=== PATIENT | male | born 1990 | race Caucasian/White ===

== ENCOUNTER 2019-03-29 09:25 | Emergency (ER) | payer MEDICAID ==
[2019-03-29 09:32] VITALS: BP_SYST 133
[2019-03-29] MEDS ORDERED: NACL 0.9% 1,000 ML IV ONE (09:49)
[2019-03-29] MEDS ORDERED: MORPHINE 4 MG/ML INJ. SYRINGE IVP ONE (10:00)
[2019-03-29] MEDS ORDERED: cefTRIAXone 1 GM IVPB PREMIX 50 ML IV ONE (10:00)
[2019-03-29] MEDS ORDERED: ONDANSETRON HCL 4 MG/2 ML VIAL IVP ONE (10:00)
[2019-03-29] MEDS ORDERED: IOHEXOL 100 ML IV ONE (10:19)
[2019-03-29 10:25] LABS: BASOPHILS # (AUTO) 0.1 K/uL (0.0-0.2); BASOPHILS % (AUTO) 0.3 % (0.0-2.0); HEMATOCRIT 39.9 % (36-54); HEMOGLOBIN 13.5 g/dL (14.0-18.0); LYMPHOCYTES # (AUTO) 1.2 K/uL (1.0-5.5); LYMPHOCYTES % (AUTO) 5.5 % (20.5-51.5); MEAN CORPUSCULAR HEMOGLOBIN 31 pg (27-31); MEAN CORPUSCULAR HGB CONC 34 % (32-36); MEAN CORPUSCULAR VOLUME 91 fL (79.0-98.0); MONOCYTES # (AUTO) 1.1 K/uL (0.0-1.0); MONOCYTES % (AUTO) 4.9 % (1.7-9.3); NEUTROPHILS % (AUTO) 89.3 % (40.0-70.0); PLATELET COUNT (AUTO) 298 K/uL (130-430); RED CELL DISTRIBUTION WIDTH 13.4 % (9.0-15.0); WHITE BLOOD COUNT (AUTO) 22.4 K/uL (4.8-10.8)
[2019-03-29 10:46] LABS: INR 1.1 (0.80-1.20); PROTHROMBIN TIME 11.4 SECS (9.5-12.5)
[2019-03-29 11:07] LABS: CALCIUM 9.3 mg/dL (8.4-11.0); CREATININE 1.03 mg/dL (0.55-1.30); POTASSIUM 3.4 mmol/L (3.5-5.1)
[2019-03-29 11:12] LABS: ERYTHROCYTE SEDIMENTATION RATE 30 MM/HR (0-15)
[2019-03-29 11:13] LABS: ALBUMIN 3.4 g/dL (3.4-4.8); TOTAL BILIRUBIN 0.2 mg/dL (0.0-1.0)
[2019-03-29 12:03] LABS: BILIRUBIN,URINE NEGATIVE (NEGATIVE); BLOOD, URINE NEGATIVE (NEGATIVE); CLARITY/URINE CLEAR (CLEAR); COLOR,URINE YELLOW (YELLOW); GLUCOSE,URINE NEGATIVE (NEGATIVE); KETONES,URINE NEGATIVE (NEGATIVE); LEUKOCYTE ESTERASE ,URINE NEGATIVE (NEGATIVE); NITRITE, URINE NEGATIVE (NEGATIVE); PROTEIN URINE TRACE (NEGATIVE); UROBILINOGEN,URINE 0.2 (0.2-1.0)
[2019-03-29 12:12] LABS: BACTERIA,URINE FEW /HPF (None Seen); RBC,URINE 0-3 /HPF (0-3); WBC,URINE 0-3 /HPF (0-3)
[2019-03-29 14:15] VITALS: BP_SYST 130
== END 2019-03-29 14:15 | disposition home or self-care (01) ==
LOC: SED 09:25
DX: M54.2 Cervicalgia (principal); R22.0 Localized swelling, mass and lump, head
CPT/HCPCS: 36415; 70491; 71045; 80053; 81000; 83605; 83690; 85025; 85610; 85651; 85730; 87040; 96365; 99284; J0696; J7030; Q9967; J2270; J2405

== ENCOUNTER 2019-03-29 23:42 | Inpatient (IN) | payer MEDICAID ==
[~2019-03-29] VITALS: Ht 175.3 cm; Wt 64.9 kg
--- NOTE | 2019-03-29 23:50 | NUR ---
Called pt in the WR,no response.
[2019-03-30] VITALS (7 sets, daily range): BP systolic 105–130
--- NOTE | 2019-03-30 | NUR ---
Patient to ER bed 8 to gown for evaluation. Side rails up. Report given to Ryan MAGALLON.
--- NOTE | 2019-03-30 | NUR ---
BIB FRIEND C/O LEFT FACIAL AND NECK SWELLING/PAIN ONSET 4 DAYS AGO,PT STS HE WAS ADMITTED IN [facility] 2 DAYS AGO FOR THE SAME REASON,PT WAS HERE THIS MORNING AND SEEN BY DR HARRINGTON ORDERED LABS ,LACTIC,BC ,CT WAS DONE TODAY.
--- NOTE | 2019-03-30 00:06 | NUR ---
ER Dr. Malloy at bedside examining patient.
[2019-03-30] MEDS ORDERED: PIPERACILLIN/TAZO 3.375 GM in NS 50 ML IV ONE (00:15)
[2019-03-30] MEDS ORDERED: NACL 0.9% 1,000 ML IV ONE (00:15)
[2019-03-30] MEDS ORDERED: methylPREDNISolone SOD SUCC/PF 62.5 MG/ML VIAL IVP ONE (00:15)
[2019-03-30] MEDS ORDERED: KETOROLAC TROMETHAMINE 30 MG VIAL IVP ONE (00:15)
[2019-03-30] MEDS ORDERED: PIPERACILLIN/TAZOBACTAM 3.375 GM/VIAL (ZOSYN) IV ONE (00:36)
--- NOTE | 2019-03-30 00:44 | NUR ---
Patient will be admitted to care of DR ARANGO. Admitted to MED -SURG unit. Will go to room 135. Belongings list completed. Summary report printed. Report will be given TO LU MAGALLON.
--- NOTE | 2019-03-30 01:02 | NUR ---
ADMISSION NOTE Received patient from ER via gurney. Patient admitted with diagnosis of Pharyngeal abscess , to room 135 , will move pt to room 119 B after the admission process .
--- NOTE | 2019-03-30 01:30 | NUR ---
PATIENT CAME FROM ER PER JUNITO WITH CC OF SWELLING SUBMANDIBULAR AND NECK PAIN X 2 DAYS, FIXED IN BED AND MADE COMFORTABLE.
--- NOTE | 2019-03-30 01:32 | NUR ---
CONSULT: CONSULT CALLED FOR DR. HICKEY I SPOKE WITH MICHELL BOTELLO REASON FOR CONSULT: PHARYNGEAL ABSCESS REQUESTING CONSULT: DR SHERI Moe ROAD PASSENGER FIRER PHONE NUMBER: [phone]
--- NOTE | 2019-03-30 01:41 | NUR ---
PATIENT DID NOT EAT DINNER AND NO DIET ORDERS , DR WADE PAGED FOR ORDERS AND AWAITING RESPONSE FOR ORDERS
--- NOTE | 2019-03-30 04:06 | NUR ---
patient is asleep. with family at bedside. Dr Aguila not called back. will follow up call in am for orders.
--- NOTE | 2019-03-30 06:00 | NUR ---
CALLED DR. MÁRQUEZ @[phone] FOR CONSULT BUT EVERY TIME I CALLED MACHINE SAID THANK YOU I HAVE NOT BE ABLE TO REACH THE RECORD PRESSMAN. NO ANSWERING SERVICE UNTIL NOW. I CALLED SEVERAL TIMES Addendum: 03/30/19 at 7396 by Clarisa Sandoval [place]/ NUMBER I CALLED SEVERAL TIMES [phone]
[2019-03-30] MEDS ORDERED: ONDANSETRON HCL 4 MG/2 ML VIAL IVP PRN (06:15)
[2019-03-30] MEDS ORDERED: LORazepam 2 MG/ML VIAL IVP PRN (06:15)
--- NOTE | 2019-03-30 06:23 | NUR ---
CONSULT: CONSULT CALLED FOR DR. ROMERO I SPOKE WITH TOSHIA BOTELLO REASON FOR CONSULT: MANDIBULAR ABSCESS REQUESTING CONSULT: DR. SHERI Moe FINANCIAL ADMINISTRATIVE ASSISTANT PHONE NUMBER: [phone]
--- NOTE | 2019-03-30 06:26 | NUR ---
TRANSFER OF CARE/END NOTE RECEIVED REPORT FROM SHERITA DALEY. SHERITA AGGARWAL LEFT EARLY. PATIENT IS ASLEEP BUT AROUSABLE. NO COMPLAINTS AT THIS TIME. PATIENT IS AMBULATORY WITH STEADY GAIT. CARE AND MONITORING PROVIDED SINCE TRANSFER OF CARE. CALL LIGHT WITHIN REACH. BED ALARM OFF PER PATIENT'S REQUEST. NEW ORDERS JUST UP. WILL START IVF. KEPT WARM AND COMFORTABLE.
[2019-03-30] MEDS: D5/0.45 NS 1,000 ML IV SCH ×3 (06:41→23:00)
--- NOTE | 2019-03-30 07:13 | NUR ---
Nutrition Update Triston Scale 15 noted. Pt admitted for Pharyngeal Abscess Diet: NPO BMI: 21 kg/m2 RD to follow per nutrition care standards.
[2019-03-30] MEDS: PIPERACILLIN/TAZO 3.375/DEX-IS 50 ML IV SCH ×4 (07:34→23:01)
--- NOTE | 2019-03-30 07:35 | NUR ---
OPENING NOTES: RECEIVED PATIENT FROM CHIEF BANK EXAMINER NURSE. PATIENT IS AWAKE AND ALERT x4. PATIENT DENIES ANY PAIN AT THE MOMENT. NO SIGNS OF DISTRESS OR SHORTNESS OF BREATH NOTED. PATIENT IS TOLERATING OXYGEN AT ROOM AIR. IV SITE IS PATENT WITH NO SIGNS OF INFILTRATION. PATIENT IN STABLE CONDITION. SAFETY AND FALL PRECAUTIONS ARE IN PLACE. BED LOCKED IN LOWEST POSITION WITH CALL LIGHT IN REACH. WILL CONTINUE TO MONITOR PATIENT FOR ANY CHANGES.
--- NOTE | 2019-03-30 08:53 | NUR ---
PAGED PAGED ERIKA BELL AT [phone] SPOKE WITH ADELITA.
--- NOTE | 2019-03-30 08:58 | NUR ---
CALL DR SHERI KASPER, AWAITING CALL BACK TO ASK ABOUT DIET, PT IS NPO BUT WANTS TO EAT AND TO CLARIFY ORDER FOR NOSE THROAT CULTURE. Addendum: 03/30/19 at 0947 by Keely Johnson RN DR WADE REPAGED TO MAKE HIM AWARE THAT DR ROMERO DOES NOT TAKE MEDICAL INSURANCE AND WILL NOT BE TAKING THE CONSULT, AWAITING CALL BACK. Addendum: 03/30/19 at 0952 by Keely Johnson RN CALLED BACK AND GAVE NEW ORDERS FOR DR ASHA BALBUENA TO SEE PT AND CANCELLED NOSE AND THROAT CULTURE
--- NOTE | 2019-03-30 09:27 | NUR ---
PAGED PAGED ERIKA BELL AT [phone] SPOKE WITH CRYSTAL.
--- NOTE | 2019-03-30 09:35 | NUR ---
Received call from Dr. Levine. He is declining consult for mandibular abscess. States he does not take Medical. Nurse informed.
--- NOTE | 2019-03-30 09:40 | NUR ---
CONSULTATION PAGED REASON FOR CONSULTATION:ABSCESS WAS CONSULT CALLED?Y PERSON WHO WAS NOTIFIED:SHARAD CONSULTING PHYSICIAN:RADHA QUINTANILLA SLOT MACHINE FLOOR PERSON SPECIALTY:SURGEON SLOT MACHINE FLOOR PERSON PHONE NUMBER:[phone] REQUESTING PHYSICIAN:ERIKA BELL
--- NOTE | 2019-03-30 10:13 | NUR ---
CONSULTATION PAGED REASON FOR CONSULTATION:PHARYNGEAL ABSCESS WAS CONSULT CALLED?Y PERSON WHO WAS NOTIFIED:OLENA CONSULTING PHYSICIAN:ERIKA PANIAGUA (EDUARD CAIN COLLECTOR OF AQUARIUM SPECIMENS) DOES NOT TAKE STRAIGHT [facility] DIGITAL FORENSIC ANALYST SPECIALTY:APPLICATION SECURITY SPECIALIST PHONE NUMBER:[phone] REQUESTING PHYSICIAN:ERIKA BELL
--- NOTE | 2019-03-30 10:20 | NUR ---
RN ROUNDS: PATIENT IS AWAKE AND ALERT x4. FAMILY AT BEDSIDE. PATIENT DENIES ANY PAIN AT THE MOMENT. PATIENT IN STABLE CONDITION. WILL CONTINUE TO MONITOR PATIENT FOR ANY CHANGES.
--- NOTE | 2019-03-30 10:37 | NUR ---
MD CALL DR SHERI KASPER. AWAITING CALL BACK TO NOTIFY HIM THAT DR ASHA BALBUENA DOES NOT TAKE MEDICAL, PER MD OK TO HAVE DR RAMOS SEE PT AND ORDER MECHANICAL SOFT DIET.
--- NOTE | 2019-03-30 11:20 | NUR ---
MD ROUNDS DR RACHEL HERNANDEZ, AWARE OF PATIENT'S CONDITION, PER MD HE WANTS TO SEE THE PT AFTER DR WADE SEES PT AND ORDERS LABS FOR HIM, WILL MAKE DR WADE AWARE WHEN HE ROUNDS.
--- NOTE | 2019-03-30 12:20 | NUR ---
RN ROUNDS: PATIENT IS AWAKE AND ALERT x4 SITTING UP IN BED. FAMILY AT BEDSIDE. PATIENT DENIES ANY PAIN AT THE MOMENT. NO SIGNS OF DISTRESS OR SHORTNESS OF BREATH NOTED. PATIENT IN STABLE CONDITION. SAFETY, FALL AND ASPIRATION PRECAUTIONS ARE IN PLACE. BED LOCKED IN LOWEST POSITION WITH CALL LIGHT IN REACH. WILL CONTINUE TO MONITOR PATIENT FOR ANY CHANGES.
--- NOTE | 2019-03-30 13:10 | NUR ---
MD ROUNDS DR WADE ROUNDING, AWARE OF PATIENT'S CONDITION, MADE AWARE THAT DR RAMOS STATED THAT HE WILL SEE PT AFTER H&P IS DONE, MD ORDERED NEW LABS.
[2019-03-30 13:43] LABS: BASOPHILS # (AUTO) 0.1 K/uL (0.0-0.2); BASOPHILS % (AUTO) 0.3 % (0.0-2.0); HEMATOCRIT 39.4 % (36-54); HEMOGLOBIN 13.1 g/dL (14.0-18.0); LYMPHOCYTES % (AUTO) 5.4 % (20.5-51.5); MEAN CORPUSCULAR HEMOGLOBIN 30 pg (27-31); MEAN CORPUSCULAR HGB CONC 33 % (32-36); MEAN CORPUSCULAR VOLUME 91 fL (79.0-98.0); MONOCYTES # (AUTO) 0.8 K/uL (0.0-1.0); MONOCYTES % (AUTO) 4.2 % (1.7-9.3); NEUTROPHILS # (AUTO) 17.1 K/uL (1.8-7.7); NEUTROPHILS % (AUTO) 90.1 % (40.0-70.0); PLATELET COUNT (AUTO) 319 K/uL (130-430); RED BLOOD CELL COUNT(AUTO) 4.32 MIL/uL (4.2-6.2); RED CELL DISTRIBUTION WIDTH 13.3 % (9.0-15.0)
--- NOTE | 2019-03-30 13:46 | NUR ---
MD ROUNDS DR MÁRQUEZ ROUNDING, AWARE OF PATIENT'S CONDITION, PER ABSCESS IS INTERNALLY AND ENT NEEDS TO SEE PT, PER MD THERE IS NOTHING HE CAN DO FOR HIM, SIGNING OFF CASE.
[2019-03-30 14:05] LABS: POTASSIUM 3.7 mmol/L (3.5-5.1)
[2019-03-30 14:06] LABS: CREATININE 0.89 mg/dL (0.55-1.30)
[2019-03-30 14:07] LABS: C-REACTIVE PROTEIN QUANT 8.2 mg/dL (0-0.5)
[2019-03-30 14:10] LABS: ALBUMIN 3.1 g/dL (3.4-4.8); TOTAL BILIRUBIN 0.5 mg/dL (0.0-1.0)
--- NOTE | 2019-03-30 14:20 | NUR ---
ROUNDS PT IN BED, NO S/S OF DISTRESS OR SOB NOTED, PT HAS NO C/O PAIN AT THIS TIME, PT IN STABLE CONDITION,PT TALKING TO VISITOR AT BEDSIDE. WILL CONTINUE TO MONITOR PT FOR ANY CHANGES.
[2019-03-30 14:23] LABS: ERYTHROCYTE SEDIMENTATION RATE 31 MM/HR (0-15)
[2019-03-30] MEDS: MORPHINE 2 MG/ML INJ. SYRINGE IVP PRN (17:58)
--- NOTE | 2019-03-30 18:50 | NUR ---
CLOSING NOTE PT IN BED, NO S/S OF DISTRESS OR SOB NOTED, PT HAS NO C/O PAIN AT THIS TIME, PT IN STABLE CONDITION, IV CATHETER PATENT, RUNNING IV FLUIDS ORDERED, PT WATCHING TV. BED AT LOWEST POSITION, CALL LIGHT WITHIN REACH, WILL ENDORSE CARE OF PT TO INCOMING NURSE, FALL AND SAFETY PRECAUTIONS IN PLACE.
--- NOTE | 2019-03-30 19:20 | NUR ---
OPENING NOTES Pt and endorsement received from day shift nurse. Pt is AAOx4, lying in bed. Pt on IVF with D5,0.45NS at 125ml/hr and infusing well on right upper arm G18. No complains of pain or discomfort at this time. No signs of acute distress or SOB noted. Encouraged to use call light when needed. Safety precautions in place with 2 side rails up, wheels locked, and bed in lowest level. Call light with pt. Will continue to monitor.
--- NOTE | 2019-03-30 20:05 | NUR ---
ROUNDS Accompanied pt to the front lobby and back to room with steady gait. Pt saw her daughter. Pt tolerated well. No complains of pain and no signs of acute distress noted. Will continue to monitor.
--- NOTE | 2019-03-30 21:30 | NUR ---
NOSE THROAT CULTURES Nose and throat culture collected and sent to lab per MD's order.
--- NOTE | 2019-03-30 23:00 | NUR ---
IV INSERTION Pt complained of discomfort on IV site. New IV inserted by SHERITA Mckeon on left forearm G20, with good blood return and flushable with saline. Reconnected IVF and is infusing well. No signs of acute distress noted. Safety precautions in place and call light with pt. Will continue to monitor.
[2019-03-31] VITALS (7 sets, daily range): BP systolic 111–137
--- NOTE | 2019-03-31 01:45 | NUR ---
ROUNDS Pt is resting in bed with both eyes closed, with visible chest rise and fall with non-labored breathing noted. IVF infusing well. No complains of pain and no signs of acute distress noted. Safety precautions in place and call light with pt. Will continue to monitor.
[2019-03-31] MEDS: MORPHINE 4 MG/ML INJ. SYRINGE IVP PRN ×4 (04:08→20:09)
--- NOTE | 2019-03-31 04:08 | NUR ---
MORPHINE GIVEN Pt complained of pain on his left side of his face and throat with a scale of 7/10. Vital signs taken and recorded. Morphine 4mg IVP given as ordered. Educated on safety and side effects like dizziness, pt verbalized understanding. No signs of acute distress noted. Safety precautions in place and call light with pt. Will continue to monitor.
[2019-03-31] MEDS: PIPERACILLIN/TAZO 3.375/DEX-IS 50 ML IV SCH ×4 (05:06→23:28)
[2019-03-31] MEDS: D5/0.45 NS 1,000 ML IV SCH ×3 (06:04→17:07)
--- NOTE | 2019-03-31 06:44 | NUR ---
CLOSING NOTES Pt is resting in bed with both eyes closed, with visible chest rise and fall with non-labored breathing noted. Visitor at beside the whole night. IVF infusing well. No complains of pain or discomfort at this time. No signs of acute distress or SOB noted. All needs attended throughout the shift. Safety precautions maintained with 2 side rails up, wheels locked and bed in lowest position. Call light with pt. Will endorse to day shift nurse.
[2019-03-31 07:16] LABS: C-REACTIVE PROTEIN QUANT 4.7 mg/dL (0-0.5); CREATININE 0.86 mg/dL (0.55-1.30); POTASSIUM 3.2 mmol/L (3.5-5.1)
[2019-03-31 07:25] LABS: BASOPHILS % (AUTO) 0.2 % (0.0-2.0); EOSINOPHILS # (AUTO) 0.1 K/uL (0.0-0.4); EOSINOPHILS % (AUTO) 0.3 % (0.0-4.0); HEMATOCRIT 37.6 % (36-54); HEMOGLOBIN 12.4 g/dL (14.0-18.0); LYMPHOCYTES # (AUTO) 3.6 K/uL (1.0-5.5); LYMPHOCYTES % (AUTO) 20.9 % (20.5-51.5); MEAN CORPUSCULAR HEMOGLOBIN 30 pg (27-31); MEAN CORPUSCULAR HGB CONC 33 % (32-36); MEAN CORPUSCULAR VOLUME 91 fL (79.0-98.0); MONOCYTES # (AUTO) 1.3 K/uL (0.0-1.0); MONOCYTES % (AUTO) 7.5 % (1.7-9.3); NEUTROPHILS # (AUTO) 12.3 K/uL (1.8-7.7); NEUTROPHILS % (AUTO) 71.1 % (40.0-70.0); PLATELET COUNT (AUTO) 298 K/uL (130-430); RED BLOOD CELL COUNT(AUTO) 4.11 MIL/uL (4.2-6.2); RED CELL DISTRIBUTION WIDTH 13.2 % (9.0-15.0); WHITE BLOOD COUNT (AUTO) 17.3 K/uL (4.8-10.8)
[2019-03-31 07:31] LABS: CALCIUM 8.6 mg/dL (8.4-11.0)
--- NOTE | 2019-03-31 07:35 | NUR ---
OPENING NOTES: RECEIVED PATIENT FROM ACTING MANAGER NURSE. PATIENT IS ASLEEP IN BED. NO SIGNS OF DISTRESS OR SHORTNESS OF BREATH NOTED. PATIENT IS TOLERATING OXYGEN AT ROOM AIR. IV SITE IS PATENT WITH NO SIGNS OF INFILTRATION. PATIENT IN STABLE CONDITION. SAFETY AND FALL PRECAUTIONS ARE IN PLACE. BED LOCKED IN LOWEST POSITION WITH CALL LIGHT IN REACH. WILL CONTINUE TO MONITOR PATIENT FOR ANY CHANGES.
[2019-03-31 08:50] LABS: ERYTHROCYTE SEDIMENTATION RATE 22 MM/HR (0-15)
--- NOTE | 2019-03-31 10:15 | NUR ---
RN ROUNDS: PATIENT IS AWAKE AND ALERT x4. FAMILY AT BEDSIDE. PATIENT STATES HIS PAIN IS A LITTLE BETTER AND TOLERABLE AT THE MOMENT. NO SIGNS OF DISTRESS OR SHORTNESS OF BREATH NOTED. PATIENT IN STABLE CONDITION. WILL CONTINUE TO MONITOR PATIENT FOR ANY CHANGES.
--- NOTE | 2019-03-31 12:14 | NUR ---
RN ROUNDS: PATIENT IS RESTING HIS EYES LAYING DOWN IN BED. NO SIGNS OF DISTRESS OR SHORTNESS OF BREATH NOTED. IV SITE IS PATENT WITH NO SIGNS OF INFILTRATION. PATIENT IN STABLE CONDITION. WILL CONTINUE TO MONITOR PATIENT FOR ANY CHANGES.
--- NOTE | 2019-03-31 14:26 | NUR ---
RN ROUNDS: PATIENT IS ASLEEP IN BED. FAMILY AT BEDSIDE. NO SIGNS OF DISTRESS OR SHORTNESS OF BREATH NOTED. PATIENT IN STABLE CONDITION. WILL CONTINUE TO MONITOR PATIENT FOR ANY CHANGES.
--- NOTE | 2019-03-31 16:08 | NUR ---
Dietitian Recommendations * Recommend mechanical soft w/ Ensure Enlive TID (ONS provides 1050 kcal/day, 60 gm protein/day) LUIS DANIEL, RD Please refer to Nutrition Assessment for details. Addendum: 03/31/19 at [address] Amended: Links added.
--- NOTE | 2019-03-31 16:21 | NUR ---
RN ROUNDS: PATIENT IS AWAKE AND ALERT x4. PATIENT STATES HIS PAIN IS TOLERABLE AT THE MOMENT. NO SIGNS OF DISTRESS OR SHORTNESS OF BREATH NOTED. FAMILY AT BEDSIDE. PATIENT IN STABLE CONDITION. WILL CONTINUE TO MONITOR PATIENT FOR ANY CHANGES.
--- NOTE | 2019-03-31 17:46 | NUR ---
MD ROUNDS DR RACHEL HERNANDEZ, AWARE OF PATIENT'S CONDITION. GAVE NEW ORDERS FOR WARM COMPRESSES AND LEMON WEDGES, SPOKE WITH DR WADE ABOUT PATIENT'S CONDITION HE WAS ROUNDING AT THE SAME TIME.
--- NOTE | 2019-03-31 17:57 | NUR ---
WARM COMPRESSES PROVIDED TO THE PATIENT TO HELP WITH PAIN. WILL CONTINUE TO MONITOR PATIENT FOR ANY CHANGES.
--- NOTE | 2019-03-31 18:03 | NUR ---
ROUNDS DR WADE SPOKE WITH CHARGE NURSE TO HAVE CASE MANAGEMENT TALK WITH ADMINISTRATION TO HAVE PT BE SEEN BY AN ENT OR HAVE PT TRANSFERRED TO ANOTHER HOSPITAL FOR HIM TO BE SEEN BY ONE, ORDER PLACED IN COMPUTER BY CHARGE NURSE.
--- NOTE | 2019-03-31 18:33 | NUR ---
CLOSING NOTES: PATIENT IS AWAKE AND ALERT x4 SITTING UP IN BED. FAMILY AT BEDSIDE. NO SIGNS OF DISTRESS OR SHORTNESS OF BREATH NOTED. PATIENT IS TOLERATING OXYGEN AT ROOM AIR. IV SITE IS PATENT WITH NO SIGNS OF INFILTRATION AND RUNNING FLUIDS ORDERED. PATIENT IN STABLE CONDITION. SAFETY AND FALL PRECAUTIONS ARE IN PLACE. BED LOCKED IN LOWEST POSITION WITH CALL LIGHT IN REACH. WILL ENDORSE PATIENT TO ONCOMING MANAGER ADMINISTRATION NURSE.
--- NOTE | 2019-03-31 19:15 | NUR ---
OPENING NOTES Pt and endorsement received from day shift nurse. Pt is AAOx4, lying in bed. Visitor at bedside. Pt on IVF with D5,0.45NS at 125ml/hr and infusing well on left forearm G20. No complains of pain or discomfort at this time. No signs of acute distress or SOB noted. Encouraged to use call light when needed. Safety precautions in place with 2 side rails up, wheels locked, and bed in lowest level. Call light with pt. Will continue to monitor.
[2019-03-31] MEDS: LINEZOLID 300 ML IV SCH (20:08)
--- NOTE | 2019-03-31 20:09 | NUR ---
MORPHINE GIVEN Pt complained of throat pain with a scale of 7/10. Vital signs taken and recorded. Morphine 4mg IVP given as ordered. Educated on safety and side effects like dizziness, pt verbalized understanding. No signs of acute distress noted. Safety precautions in place and call light with pt. Will continue to monitor.
--- NOTE | 2019-03-31 22:30 | NUR ---
TRANSFER OF CARE Pt is resting in bed with both eyes closed, with visible chest rise and fall with non-labored breathing noted. IVF infusing well. No complains of pain at this time and no signs of acute distress noted. Safety precautions in place and call light with pt. Endorsed to SHERITA Mckeon for continuity of care.
--- NOTE | 2019-03-31 22:45 | NUR ---
continuation of care. pt is resting on his side. no sob. no pain. stable. [facility]
--- NOTE | 2019-04-01 | NUR ---
ambulate to bathroom. steady gait. stable. back to bed. needs attended. will follow-up.
--- NOTE | 2019-04-01 02:00 | NUR ---
sleeping to his side. stable. no pain. no distress. stable.
[2019-04-01] MEDS: D5/0.45 NS 1,000 ML IV SCH ×3 (03:42→22:04)
--- NOTE | 2019-04-01 05:00 | NUR ---
sleeping. no distress.no pain. stable. ivf infusing well.
--- NOTE | 2019-04-01 06:00 | NUR ---
pt complain of pain 5/10 to his neck. explained the medication side effects. pt verbalized understanding. needs attended. call light in reach.
[2019-04-01] MEDS: PIPERACILLIN/TAZO 3.375/DEX-IS 50 ML IV SCH ×4 (06:08→23:31)
[2019-04-01] MEDS: MORPHINE 2 MG/ML INJ. SYRINGE IVP PRN ×3 (06:13→23:31)
--- NOTE | 2019-04-01 07:20 | NUR ---
closing: pt is resting to his side, stable no pain. needs attended the whole shift. ivf infusing well. will give bedside report to am rn.
--- NOTE | 2019-04-01 07:35 | NUR ---
AM ROUNDS: PATIENT SLEEPING DURING ROUNDS. REPORT RECEIVED FROM VIVIANA REILLY. NO ACUTE DISTRESS. NO NEEDS THIS TIME.
[2019-04-01 07:48] LABS: BASOPHILS % (AUTO) 0.2 % (0.0-2.0); EOSINOPHILS # (AUTO) 0.2 K/uL (0.0-0.4); EOSINOPHILS % (AUTO) 1.4 % (0.0-4.0); HEMATOCRIT 40.2 % (36-54); HEMOGLOBIN 13.6 g/dL (14.0-18.0); LYMPHOCYTES # (AUTO) 2.8 K/uL (1.0-5.5); LYMPHOCYTES % (AUTO) 18.2 % (20.5-51.5); MEAN CORPUSCULAR HEMOGLOBIN 30 pg (27-31); MEAN CORPUSCULAR HGB CONC 34 % (32-36); MEAN CORPUSCULAR VOLUME 90 fL (79.0-98.0); MONOCYTES # (AUTO) 1.1 K/uL (0.0-1.0); NEUTROPHILS # (AUTO) 11.1 K/uL (1.8-7.7); NEUTROPHILS % (AUTO) 73.2 % (40.0-70.0); PLATELET COUNT (AUTO) 360 K/uL (130-430); RED CELL DISTRIBUTION WIDTH 13.3 % (9.0-15.0); WHITE BLOOD COUNT (AUTO) 15.2 K/uL (4.8-10.8)
[2019-04-01 07:52] LABS: C-REACTIVE PROTEIN QUANT 6.7 mg/dL (0-0.5); CHLORIDE 103 mmol/L (98-107); CREATININE 0.94 mg/dL (0.55-1.30); GLUCOSE 100 mg/dL (70-99); SODIUM SERUM 136 mmol/L (136-145); UREA NITROGEN, BLOOD 4 mg/dL (8-21)
[2019-04-01 07:53] LABS: GFR AFRICAN AMERICAN 121 mL/min (>90)
[2019-04-01 08:43] LABS: ANION GAP < 3 (5-15)
[2019-04-01 08:48] LABS: ERYTHROCYTE SEDIMENTATION RATE 40 MM/HR (0-15)
--- NOTE | 2019-04-01 09:00 | NUR ---
AMBULATE: PATIENT AMBULATED IN THE HALLWAY. THEN BACK TO HIS ROOM IN STABLE CONDITION.
[2019-04-01] MEDS: LINEZOLID 300 ML IV SCH ×2 (09:32→21:50)
[2019-04-01 09:39] VITALS: BP_SYST 131
--- NOTE | 2019-04-01 12:10 | NUR ---
LUNCH: PATIENT HAVING LUNCH. NO DISTRESS.
--- NOTE | 2019-04-01 12:15 | NUR ---
DC Planning: Faxing pt's info/ transfer request to [facility] transfer ctr attn to Maurice fax # [phone], tel # [phone] opt#1. CM will f/u for their acceptance decision. >> SULEMA consulted with Maureen, director for ENT consultation to see the pt at this hospital. At this time, there is no ENT to see the pt due to insurance status. Addendum: 04/01/19 at 1308 by Lilliana Almodovar RN [facility] follow up: per Martha at [facility] transfer ctr # [phone] " there is no bed capacity for the patient, so that can not accept the pt". Dr Aguila and dr. Tijerina made aware.
[2019-04-01 12:37] VITALS: BP_SYST 120
--- NOTE | 2019-04-01 14:38 | NUR ---
RN ROUNDS: PATIENT RESTING COMFORTABLE. STABLE.
[2019-04-01] MEDS ORDERED: POTASSIUM CHLORIDE 20 MEQ TAB.PRT.SR PO ONE (15:00)
--- NOTE | 2019-04-01 16:00 | NUR ---
RN ROUNDS: NO ACUTE DISTRESS. NO NEEDS THIS TIME.
[2019-04-01 16:11] VITALS: BP_SYST 125
--- NOTE | 2019-04-01 19:00 | NUR ---
END OF SHIFT: REPORT GIVEN TO NIGHT NURSE FELICIA. NO ACUTE DISTRESS. PATIENT AMBULATES IN THE NURSING STATION,WITH NO PROBLEM.
--- NOTE | 2019-04-01 19:30 | NUR ---
Pt is fully AAO x4 and ambulating in the hallway with steady gait. IVF is infusing well in LFA without any signs of infiltration. Pt denies pain or discomfort at this time.
[2019-04-01 20:00] VITALS: BP_SYST 116
--- NOTE | 2019-04-01 22:00 | NUR ---
Pt is resting quietly in bed with his girlfriend at the bedside. No acute distress noted. Call light is with pt and bed is in the lowest and locked positions.
--- NOTE | 2019-04-01 23:31 | NUR ---
Morphine 2mg was given IV for c/o pain in his left jaw, neck and ear. IV site is without any signs of infiltration.
[2019-04-02] VITALS: BP_SYST 116
--- NOTE | 2019-04-02 01:30 | NUR ---
Pt is sleeping without any respiratory distress noted. IVF is infusing well in LFA. Fall and safety precautions are in place.
[2019-04-02] MEDS: D5/0.45 NS 1,000 ML IV SCH ×2 (03:12→15:15)
--- NOTE | 2019-04-02 04:00 | NUR ---
Pt is sleeping comfortably in bed. No respiratory distress noted. IVF is infusing well in LFA. Fall and safety precautions are in place.
[2019-04-02] MEDS: PIPERACILLIN/TAZO 3.375/DEX-IS 50 ML IV SCH ×3 (05:57→17:19)
--- NOTE | 2019-04-02 06:24 | NUR ---
PT IS AWAKE AND STILL REFUSING NURSING CARE. PT IS STILL LYING ON THE SHEETS FROM ER. PT REFUSED BREATHING TREATMENT. PT WAS KEPT NPO AFTER MIDNIGHT FOR SURGERY TODAY. IVF IS INFUSING WELL IN LFA. WILL ENDORSE TO DAY SHIFT NURSE. Addendum: 04/02/19 at 0628 by Christen Sweeney RN WRONG ENTRY. PLEASE DISREGARD.
--- NOTE | 2019-04-02 06:28 | NUR ---
PT IS AWAKE AND RESTING QUIETLY IN BED. ALL PT'S NEEDS WERE ATTENDED TO. IVF IS INFUSING WELL IN LFA. FALL AND SAFETY PRECAUTIONS ARE IN PLACE. WILL ENDORSE TO DAY SHIFT NURSE.
[2019-04-02 07:16] LABS: BASOPHILS % (AUTO) 0.1 % (0.0-2.0); EOSINOPHILS # (AUTO) 0.3 K/uL (0.0-0.4); HEMOGLOBIN 13.9 g/dL (14.0-18.0); LYMPHOCYTES # (AUTO) 3.4 K/uL (1.0-5.5); LYMPHOCYTES % (AUTO) 24.8 % (20.5-51.5); MEAN CORPUSCULAR HEMOGLOBIN 30 pg (27-31); MEAN CORPUSCULAR HGB CONC 34 % (32-36); MEAN CORPUSCULAR VOLUME 90 fL (79.0-98.0); MONOCYTES % (AUTO) 7.2 % (1.7-9.3); NEUTROPHILS # (AUTO) 8.9 K/uL (1.8-7.7); NEUTROPHILS % (AUTO) 65.9 % (40.0-70.0); PLATELET COUNT (AUTO) 432 K/uL (130-430); RED BLOOD CELL COUNT(AUTO) 4.56 MIL/uL (4.2-6.2); RED CELL DISTRIBUTION WIDTH 13.3 % (9.0-15.0); WHITE BLOOD COUNT (AUTO) 13.6 K/uL (4.8-10.8)
[2019-04-02 07:24] LABS: C-REACTIVE PROTEIN QUANT 5.1 mg/dL (0-0.5); CREATININE 1.03 mg/dL (0.55-1.30); POTASSIUM 3.4 mmol/L (3.5-5.1)
--- NOTE | 2019-04-02 07:25 | NUR ---
AM ROUNDS: SLEEPING DURING ROUNDS. NO ACUTE DISTRESS. CALL LIGHT WITH IN REACH. BED LOCKED AT LOWEST POSITION.
[2019-04-02 07:35] LABS: CALCIUM 9.2 mg/dL (8.4-11.0)
[2019-04-02 08:14] VITALS: BP_SYST 112
[2019-04-02 08:54] LABS: ERYTHROCYTE SEDIMENTATION RATE 37 MM/HR (0-15)
[2019-04-02] MEDS: LINEZOLID 300 ML IV SCH (10:02)
--- NOTE | 2019-04-02 10:48 | NUR ---
AMBULATES: PATIENT AMBULATING WITH SIGNIFICANT OTHER IN THE HALLWAY THEN BACK TO HIS ROOM.WITH NO PROBLEM.
[2019-04-02 11:53] VITALS: BP_SYST 112
--- NOTE | 2019-04-02 12:30 | NUR ---
LUNCH: PATIENT HAVING LUNCH INDEPENDENTLY. STABLE.
--- NOTE | 2019-04-02 14:48 | NUR ---
AMBULATES: PATIENT AMBULATING WITH GIRLFRIEND IN THE HALLWAY THEN BACK TO HIS ROOM. WITH STEADY GAIT.
--- NOTE | 2019-04-02 16:10 | NUR ---
RN ROUNDS: NO DISTRESS. DENIES ANY PAIN.
--- NOTE | 2019-04-02 17:15 | NUR ---
IV LEAKING: IV AT LEFT FOREARM REMOVED DUE TO LEAKING,DRY GAUZE APPLIED,NO ACTIVE BLEEDING NOTED.IV RE SITED AT RIGHT FOREARM USING G#20,CONTINUE IVF ORDERED.
[2019-04-02 17:17] VITALS: BP_SYST 125
[2019-04-02] MEDS ORDERED: AMOX-426 PO (18:05)
[2019-04-02 18:35] VITALS: BP_SYST 125
--- NOTE | 2019-04-02 19:10 | NUR ---
D/C Patient Patient given medication reconciliation form and D/C instructions. Exit Care provided. Patient verbalized understanding. MD discussed with patient the results and treatment provided. Ambulatory with steady gait for discharge to home. Patient in stable condition, ID band removed. IV catheter removed, intact and dressing applied, no active bleeding. Rx of Augmentin given. Patient educated on pain management. All belongings sent with patient.
== END 2019-04-02 19:10 | disposition home or self-care (01) | DRG 115 ==
LOC: SED 23:42 → SMU 03-30 00:29
PROVIDERS: ADMIT Preventive Medicine Preventive Medicine/Occupational Environmental Medicine; ATTEND Preventive Medicine Preventive Medicine/Occupational Environmental Medicine
DX: K12.2 Cellulitis and abscess of mouth (principal); R65.10 Systemic inflammatory response syndrome (SIRS) of non-infectious origin without acute organ dysfunction; E16.2 Hypoglycemia, unspecified; E87.6 Hypokalemia; F12.10 Cannabis abuse, uncomplicated; I88.9 Nonspecific lymphadenitis, unspecified; K11.21 Acute sialoadenitis; M27.2 Inflammatory conditions of jaws; R73.9 Hyperglycemia, unspecified; Z79.899 Other long term (current) drug therapy
CPT/HCPCS: 36415; 80048; 80053; 85025; 85651-TC; 86140; 87040-TC; 87081; 96365; 96375; 99291; J1885; J2020; J2270; J2543; J2930